=== PATIENT | female | born 1935 | race American Indian/Alaskan Native ===

== ENCOUNTER 2019-06-13 09:29 | Day surgery (SDC) | payer MEDICARE ==
[2019-06-13] MEDS ORDERED: SODIUM CHLORIDE 0.9% 1000 ML 1,000 ML ONE (10:20)
[2019-06-13] MEDS ORDERED: LIDOCAINE MPF (2%) 20 MG/1 ML VIAL 5 ML ONE (10:30)
--- NOTE | 2019-06-13 10:40 | Anesthesia Consultation ---
Anesthesia Consult and Med Hx - Airway Anesthetic Teeth Evaluation: Partials ROM Head & Neck: Adequate Mental/Hyoid Distance: Adequate Mallampati Class: Class I Intubation Access Assessment: Good - Pulmonary Exam CTA: Yes - Cardiac Exam Cardiac Exam: RRR - Pre-Operative Health Status ASA Pre-Surgery Classification: ASA3 Proposed Anesthetic Plan: MAC - Pulmonary Hx Smoking: No Hx Asthma: No SOB: Yes (with exertion) Hx Pneumonia: No Hx Sleep Apnea: No - Cardiovascular System Hx Hypertension: Yes Hx Angina: No (hospitalized in 2013 with CP. workup R/O heart issues per Pt report) - Central Nervous System CVA: Yes (2013 ) - Endocrine Hx Non-Insulin Dependent Diabetes: Yes (Pre diabetes, diet controlled.) - Hematic Hx Anemia: No - Other Systems Hx Cancer: No
--- NOTE | 2019-06-13 10:41 | Anesthesia Day of Surgery ---
Anesthesia Day of Surgery - Day of Surgery Patient Examined: Yes Patient H&P Reviewed: Yes Patient is NPO: Yes
[2019-06-13] MEDS ORDERED: PROPOFOL 200 MG/20 ML VIAL IV ONE (12:01)
--- NOTE | 2019-06-13 12:47 | Operative Report ---
Operative Report Operative Report: Procedure: Colonoscopy with Multiple Cold hot biopsy polypectomies, polyp ablation. Attending physician: Joni Hilton M.D. Grain Scooper: Joni Hilton M.D. Indication: Patient is a 83-year-old female who presents history of progressive constipation, abdominal pain with bloating. This colonoscopy serves to evaluate patient so that treatment may be directed based on the findings. Consent: Informed consent was obtained after advising the patient and family regarding nature of this procedure, its indications, potential benefits as well as possible complications including but not limited to bleeding perforation and adverse reaction to medication, infection as well as other cardiopulmonary compl ications. An informed written and verbal consent was then obtained after due opportunity was provided for questions and answers. Monitoring: Patient was monitored continuously with pulse oximetry and electrocardiographic recordings as well as blood pressure recordings. Vital signs remained stable throughout this procedure with no untoward events. Preoperative assessment: Patient was assessed immediately prior to this procedure for capacity to tolerate monitored anesthesia care and moderate sedation as well as general anesthesia. Patient's ASA classification is 3, Mallampati class is 2, Hyomental distance is 3. Instrument: Olympus video colonoscope CF-HQ 190L Medications: Propofol given intravenously in divided doses. For details please refer to anesthesia records. Description of procedure: Patient was placed in the left lateral decubitus position after achieving sedation, a digital rectal examination was performed following which the colonoscope was introduced into the anal verge and advanced to the cecum which was identified by the cecal valve, the appendiceal orifice, as well as by the cecal strap and direct transillumination. The colonoscope was subsequently withdrawn with careful inspection of all mucosal surfaces. Patient tolerated this procedure well and was subsequently taken to the recovery room. The following findings were noted. Findings: [place] bowel preparation scale score : 6. : Patient had adequate colonoscopic preparation with no significant residual stool in the right colon and transverse colon and left colon. The overall preparation therefore deemed adequate with a scale score of 6. The withdrawal time from the cecum was greater than 6 minutes. Patient had diverticulosis of mild severity involving the descending colon and sigmoid colon. There was a colonic anastomosis seen in the sigmoid colon which was normal. The cecum was normal. The ascending colon was normal. In the transverse colon, patient had a 5 mm sessile polyp which was removed by hot biopsy polypectomy. There was another adjoining 4 mm polyp which was again removed by hot biopsy polypectomy. The descending colon was normal except for findings of mild diverticulosis. As previously noted, there was a normal- appearing colonic anastomosis seen in the sigmoid colon. Also, in the sigmoid colon there was a flat 6 mm polyp which was removed by hot biopsy polypectomy and the polyp site was then ablated completely. The rectum was normal . On a retroflexed view of the anal verge, patient had internal hemorrhoids. Impression: Transverse colon polyps status post hot biopsy polypectomy. Sigmoid colon polyp status post biopsy polypectomy and ablation Normal colonic anastomosis in the sigmoid colon Diverticular disease of the colon. Internal hemorrhoids. Plan: Follow pathology report. High-fiber diet. Repeat colonoscopy in 5 years depending on patient's performance status and overall health
[2019-06-13 13:35] VITALS: BP 151/68
--- NOTE | 2019-06-13 14:03 | Discharge Summary ---
Short Stay Discharge Plan Activity: advance as tolerated Weight Bearing Status: Weight Bear as Tolerated Diet: regular Follow up with: ALMA ROSA SAMUEL MD [Primary Care Provider] - 7 Days
--- NOTE | 2019-06-13 17:26 | Post Anesthesia Evaluation ---
- Post Anesthesia Evaluation Patient Participated: Yes Airway Patent: Yes Stable Respiratory Function: Yes Nausea/Vomiting: No Temp > 96.8F: Yes Pain Manageable: Yes Adequeate Hydration: Yes Anesthesia Complications: No Block Receding Appropriately: Not Applicable Patient on Ventilator: No
== END 2019-06-13 09:30 | disposition home or self-care (01) ==
LOC: GIO 09:29
PROVIDERS: ATTEND Internal Medicine Gastroenterology
DX: K59.00 Constipation, unspecified (principal); R10.84 Generalized abdominal pain; D12.3 Benign neoplasm of transverse colon; K57.30 Diverticulosis of large intestine without perforation or abscess without bleeding; K64.8 Other hemorrhoids; I73.9 Peripheral vascular disease, unspecified; E78.00 Pure hypercholesterolemia, unspecified; I10 Essential (primary) hypertension; M19.90 Unspecified osteoarthritis, unspecified site; E11.51 Type 2 diabetes mellitus with diabetic peripheral angiopathy without gangrene; D64.9 Anemia, unspecified; Z88.8 Allergy status to other drugs, medicaments and biological substances; Z79.899 Other long term (current) drug therapy; Z98.41 Cataract extraction status, right eye; Z98.42 Cataract extraction status, left eye; Z98.890 Other specified postprocedural states; Z86.73 Personal history of transient ischemic attack (TIA), and cerebral infarction without residual deficits
CPT/HCPCS: 45384; 82962; 88305; J2704; J7030